=== PATIENT | male | born 1995 | race Caucasian/White ===

== ENCOUNTER → 2021-02-05 | Day surgery (SDC) | payer OTHER ==
[2021-01-28 13:07] LABS: BASOPHILS % (AUTO) 0.7 % (0-1); EOSINOPHILS # (AUTO) 0.1 X10'3 (0-0.9); EOSINOPHILS % (AUTO) 1.9 % (0-6); LYMPHOCYTES # (AUTO) 2.9 X10'3 (1.1-4.8); LYMPHOCYTES % (AUTO) 40.8 % (21-51); MEAN CORPUSCULAR HEMOGLOBIN 29.1 PG (27.0-31.0); MEAN CORPUSCULAR HGB CONC 34.2 g/dL (33.0-36.5); MEAN PLATELET VOLUME 8.5 FL (7.4-10.4); MONOCYTES # (AUTO) 0.8 X10'3 (0-0.9); MONOCYTES % (AUTO) 11.4 % (2-12); NEUTROPHILS # (AUTO) 3.2 X10'3 (1.8-7.7); NEUTROPHILS % (AUTO) 45.2 % (42-75); PRE OP HEMATOCRIT 45.3 % (42.0-52.0); PRE OP HEMOGLOBIN 15.5 g/dL (14.0-17.9); PRE OP PLATELET COUNT 251 X10'3 (140-440); RED BLOOD COUNT 5.34 X10'6 (4.70-6.10); RED CELL DISTRIBUTION WIDTH 14.4 % (11.5-14.5)
[2021-01-28 13:23] LABS: ALBUMIN 3.6 G/DL (3.4-5.0); ALBUMIN/GLOBULIN RATIO 1.1 (1.1-1.5); ALKALINE PHOSPHATASE 118 IU/L (46-116); BLOOD UREA NITROGEN 13 MG/DL (7-18); CALCIUM 8.7 MG/DL (8.5-10.1); CHLORIDE 109 MMOL/L (99-107); PRE OP ALT 65 U/L (30-65); PRE OP ANION GAP 8 (8-16); PRE OP AST 20 U/L (10-37); PRE OP BILIRUB, TOTAL 0.6 MG/DL (0.0-1.0); PRE OP GLUCOSE 97 MG/DL (70-104); PRE OP POTASSIUM 3.8 MMOL/L (3.4-5.1); PRE OP SODIUM 144 MMOL/L (135-145); TOTAL CARBON DIOXIDE 26.6 MMOL/L (24-32); TOTAL PROTEIN 6.9 G/DL (6.4-8.2); eGFR > 90 ML/MIN
[2021-02-05] VITALS (13 sets, daily range): BP systolic 114–143; BP diastolic 66–91
[~2021-02-05] VITALS: Ht 195.6 cm; Wt 185.5 kg
[~2021-02-05] MED LIST: BUPIVAcaine/PF 2.5 mg/ml (0.25%) 30ml vial ONE; LIDOcaine 1%/PF 5ML 10 MG/ML VIAL ONE; LIDOcaine 2% (20mg/ml) 5ml vial ONE; LIDOcaine 2% 5ml jelly ONE; NO HOME MEDS; ROPIVAcaine 0.5% (5mg/ml) 30ml vial ONE; acetaminophen 1,000mg/100ml IV 100 ML IV PRN; albuterol 2.5 MG/3 ML nebule NEB ONE; ceFAZolin 2gm in dextrose, iso 50 ML IV ONE; ceFAZolin/D5W- 1GM premix 50 ML IV ONE; dexamethasone sod phosphate 10mg/ml inj ONE; dexamethasone sod phosphate 4mg/ml inj. ONE; famotidine 20mg tablet PO ONE; fentaNYL /PF 50mcg/ml 5ml ampule ONE; hydrALAZINE 20mg/ml inj. IV PRN; ketorolac trometh. 30mg/ml inj. IV ONE; labetalol 20mg/4ml (5mg/ml) syringe IV PRN; meperidine/PF 25mg/ml syringe IV PRN; midazolam 1 mg/ML 2ml injection ONE; morphine 2 MG/ML inj. syringe IV PRN; morphine 4 MG/ML inj SYRINge IV PRN; ondansetron/PF 4mg/2ml inj IV PRN; ondansetron/PF 4mg/2ml inj ONE; proCHLORperazine 10 MG/2 ml inj IV PRN; propofol inj 20 ML IV ONE; ringers solution, lacted 1,000 ML IV SCH; rocuronium 10mg/ml inj IV ONE; sevoflurane 250ml liquid IH ONE; triamcinolone acetonide 40mg/ml inj ONE; vancomycin 1,500 MG in NS 300ml IV soln IV ONE
--- NOTE | 2021-02-05 15:54 | NUR ---
Received from OR via , accompanied by Anesthesiologist DR LIND and report given by Anesthesiolgist. PT PRESENTS WITH 20G PIV IN RIGHT HAND. VSS. LR RUNNING AT 100MLS/HR. DRESSING ON LEFT SHOULDER DRY AND INTACT. Addendum: 02/05/21 at 1556 by Maria Victoria Chavez RN, RN Amended: Links added.
--- NOTE | 2021-02-05 16:37 | NUR ---
PT REPORTS THAT HE HAS ASTMA AND WOULD LIKE A BREATHING TREATMENT. PT USES ALBUTEROL AT HOME. RT PAGED FOR BREATHING TREATMENT. Addendum: 02/05/21 at 1641 by Maria Victoria Chavez RN, RN Amended: Links added.
--- NOTE | 2021-02-05 16:55 | NUR ---
RT AT BEDSIDE. Addendum: 02/05/21 at 1656 by Maria Victoria Muller - STACI RN Amended: Links added.
--- NOTE | 2021-02-05 17:22 | NUR ---
ALL DISCHARGE CRITERIA HAS BEEN MET. VSS, PAIN AT A TOLERABLE LEVEL, VOIDING AND ABLE TO SAFELY AMBULATE AND TRANSFER SELF. IV TAKEN OUT WITHOUT ANY COMPLICATIONS. ALL DISCHARGE INSTRUCTIONS COVERED WITH PATIENT AND ALL QUESTIONS ANSWERED. PATIENT TAKEN OUT VIA WHEELCHAIR TO PERSONAL VEHICLE WHERE FAMILY/FRIEND DROVE PATIENT HOME. Addendum: 02/05/21 at 1732 by Maria Victoria Chavez RN, RN Amended: Links added.
== END | disposition home or self-care (01) ==
LOC: PAS 10:08
PROVIDERS: ATTEND Orthopaedic Surgery
DX: S43.432A Superior glenoid labrum lesion of left shoulder, initial encounter (principal); M19.012 Primary osteoarthritis, left shoulder; M94.212 Chondromalacia, left shoulder; M65.812 Other synovitis and tenosynovitis, left shoulder; Y93.89 Activity, other specified; Y92.89 Other specified places as the place of occurrence of the external cause; Y99.8 Other external cause status; W19.XXXA Unspecified fall, initial encounter; F17.210 Nicotine dependence, cigarettes, uncomplicated; E66.01 Morbid (severe) obesity due to excess calories; Z79.899 Other long term (current) drug therapy; Z98.890 Other specified postprocedural states; Z20.822 Contact with and (suspected) exposure to COVID-19
CPT/HCPCS: 29806; 29824; 29826; 36415; 80053; 82948; 85025; 93005; 94640; 94760; C1713; J0690; J1100; J2001; J2250; J2405; J2704; J3010; J3301; J3370; J3490; J7040; U0003; U0005; A4215; A4565; A4618; A6250; A6449; A7000; J2795; J7120